=== PATIENT | female | born 1980 | race Caucasian/White ===

== ENCOUNTER 2016-10-22 13:22 | Outpatient (CLI) | payer MEDICAID | END 2016-10-22 13:23 | disposition home or self-care (01) | DX: R53.83 Other fatigue (principal); Z13.1 Encounter for screening for diabetes mellitus ==

== ENCOUNTER 2017-06-09 18:44 | Emergency (ER) | payer MEDICAID ==
--- NOTE | 2017-06-09 20:59 | ED Physician Documentation ---
PD HPI FEMALE - Stated complaint Stated Complaint: FEMALE - Chief complaint Chief Complaint: General - History obtained from History obtained from: Patient - History of Present Illness Timing - onset: How many days ago (3) Timing - duration: Days (3) Timing - details: Gradual onset, Still present Associated symptoms: Other (inguinal lump like infected hair follicle that has gotten bigger.). No: Fever, Vaginal discharge, Genital sore/lesion Contributing factors: No: Exposed to STD Similar symptoms before: Has not had sx before Recently seen: Not recently seen Review of Systems Constitutional: denies: Fever, Chills : denies: Dysuria, Frequency, Discharge PD PAST MEDICAL HISTORY - Past Medical History Cardiovascular: None Respiratory: None Neuro: None Endocrine/Autoimmune: None GI: GERD SHRIMP HEADER: Ovarian cysts : None HEENT: None Psych: Depression, Anxiety Musculoskeletal: None Derm: None - Past Surgical History Past Surgical History: Yes Ortho: Other /SHRIMP HEADER: Tubal ligation, Hysterectomy, Oophrectomy - Present Medications Home Medications: Ambulatory Orders Medication Instructions Recorded Confirmed Ascorbic Acid [Vitamin C] 1 tab PO DAILY 09/21/15 06/09/17 Cholecalciferol (Vitamin D3) 1 cap PO DAILY 09/21/15 06/09/17 [Vitamin D] HYDROcod/ACETAM 5/325 [[place] 5/325] 1 tab PO Q6H PRN #15 tablet 06/09/17 Sulfamethox/Trimeth 800/160 1 each PO BID #14 tablet 06/09/17 [Bactrim Ds 800/160] - Allergies Allergies/Adverse Reactions: Allergies Allergy/AdvReac Type Severity Reaction Status Date / Time morphine Allergy Hives Verified 06/09/17 19:11 - Social History Does the pt smoke?: No Smoking Status: Never smoker Does the pt drink ETOH?: No Does the pt have substance abuse?: No - Immunizations Immunizations are current?: No - POLST Patient has POLST: No PD ED PE NORMAL - Vitals Vital signs reviewed: Yes - General General: Alert and oriented X 3, No acute distress (but is in pain with palpation of the groin area. ), Well developed/nourished - Derm Derm: Normal color, Warm and dry, Other (left inguinal area with focal area of swelling, surrounding by redness and tenderness, some induration. ) Results - Vitals Vitals: Oxygen O2 Source Room air Procedures - Abscess I&D (location) left inguinal area Preparation: Confirmed with ultrasound (only small area of fluid), Lidocaine 1% , With epi Incision: Incised with scalpel, Purulent drainage, Irrigated Other: Pt tolerated well, Dressing applied, Antibiotic prescribed PD MEDICAL DECISION MAKING - ED course Complexity details: considered differential, d/w patient Departure - Departure Disposition: 01 Home, Self Care Clinical Impression: Inguinal abscess Condition: Stable Record reviewed to determine appropriate education?: Yes Instructions: ED Abscess IandD Follow-Up: Raysa Burch ARNP [Primary Care Provider] - Prescriptions: HYDROcod/ACETAM 5/325 [[place] 5/325] 1 tab PO Q6H PRN #15 tablet PRN Reason: Pain Sulfamethox/Trimeth 800/160 [Bactrim Ds 800/160] 1 each PO BID #14 tablet Comments: Warm moist towels to the abscess and infection area a few times a day. Cleanse it with soap and water. Allow the drainage spot to continue draining with some gauze over it. Tylenol or ibuprofen if needed for pains. Add hydrocodone if needed. Bactrim twice daily for a week for the infection of the tissue surrounding it. Recheck if not improved over the next several days or if not fully resolved over a week. Discharge Date/Time: 06/09/17 21:54
[2017-06-09] MEDS ORDERED: ACETAMINOPHEN 325 MG TABLET PO STA (21:12)
[2017-06-09] MEDS ORDERED: IBUPROFEN 600 MG TABLET PO STA (21:12)
[2017-06-09] MEDS ORDERED: SULFAMETH/TRIMETH DS 800/160 MG TABLET PO STA (21:12)
[2017-06-09] MEDS ORDERED: HYDROcod/ACET 5/325 Prepack 6 PO ONE ×3 (21:12→21:50)
[2017-06-09] MEDS ORDERED: SULFAMETH/TRIMETH DS 800/160 MG TABLET PO ONE (21:25)
[2017-06-09] MEDS ORDERED: ACETAMINOPHEN 325 MG TABLET PO ONE (21:25)
[2017-06-09 21:46] VITALS: BP 120/79
== END 2017-06-09 21:54 | disposition home or self-care (01) ==
LOC: ED 18:44
DX: L02.214 Cutaneous abscess of groin (principal)
CPT/HCPCS: 10060; 99283; A9270

== ENCOUNTER 2018-03-01 14:00 | Emergency (ER) | payer MEDICAID ==
[2018-03-01 14:29] VITALS: BP 139/74
--- NOTE | 2018-03-01 14:56 | ED Physician Documentation ---
PD HPI FEMALE - Stated complaint Stated Complaint: FEMALE - Chief complaint Chief Complaint: UTI - History obtained from History obtained from: Patient - History of Present Illness Timing - onset: Yesterday Timing - details: Abrupt onset, Still present (marked pain with urinating) Associated symptoms: Dysuria, Urinary frequency. No: Fever, Back pain, Vaginal bleeding, Vaginal discharge, Genital sore/lesion Contributing factors: No: Exposed to STD Similar symptoms before: Diagnosis (UTIs, but none recently) Recently seen: Not recently seen Review of Systems Constitutional: denies: Fever, Chills GI: denies: Nausea, Vomiting, Diarrhea : reports: Dysuria, Frequency, Hematuria. 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: Ovarian cysts : None HEENT: None Psych: Depression, Anxiety Musculoskeletal: None Derm: None - Past Surgical History Past Surgical History: Yes Ortho: Other /SUPERINTENDENT RADIO COMMUNICATIONS: Tubal ligation, Hysterectomy, Oophrectomy - Present Medications Home Medications: Ambulatory Orders Medication Instructions Recorded Confirmed Ascorbic Acid [Vitamin C] 1 tab PO DAILY 09/21/15 06/09/17 Cholecalciferol (Vitamin D3) 1 cap PO DAILY 09/21/15 06/09/17 [Vitamin D] HYDROcod/ACETAM 5/325 [[place] 5/325] 1 tab PO Q6H PRN #15 tablet 06/09/17 Sulfamethox/Trimeth 800/160 1 each PO BID #14 tablet 06/09/17 [Bactrim Ds 800/160] HYDROcod/ACETAM 5/325 [[place] 5/325] 1 tab PO Q6H PRN #8 tablet 03/01/18 Phenazopyridine [Pyridium] 200 mg PO TID PRN #15 tablet 03/01/18 Sulfamethox/Trimeth 800/160 1 each PO BID #14 tablet 03/01/18 [Bactrim Ds 800/160] - Allergies Allergies/Adverse Reactions: Allergies Allergy/AdvReac Type Severity Reaction Status Date / Time morphine Allergy Hives Verified 06/09/17 19:11 - Social History Does the pt smoke?: No Smoking Status: Never smoker Does the pt drink ETOH?: Yes Does the pt have substance abuse?: No - Immunizations Immunizations are current?: Yes - POLST Patient has POLST: No PD ED PE NORMAL - Vitals Vital signs reviewed: Yes - General General: Alert and oriented X 3, Well developed/nourished - Abdomen Abdomen: Soft, Non tender - Female Female : Deferred - Rectal Rectal: Deferred - Back Back: No CVA TTP - Derm Derm: Normal color, Warm and dry, No rash Results - Vitals Vitals: Vital Signs - 24 hr 03/01/18 14:26 Temperature 36.6 C Heart Rate 84 Respiratory 16 Rate Blood Pressure 139/74 H O2 Saturation 97 Oxygen O2 Source Room air - Labs Labs: Microbiology 03/01/18 14:55 Urine Culture - Preliminary Urine,Clean Catch Escherichia Coli Laboratory Tests 03/01/18 14:55 Urine Color YELLOW Urine Clarity HAZY Urine pH 6.5 Ur Specific [place] <=1.005 Urine Protein NEGATIVE Urine Glucose (UA) NEGATIVE Urine Ketones NEGATIVE Urine Occult Blood LARGE H Urine Nitrite NEGATIVE Urine Bilirubin NEGATIVE Urine Urobilinogen 0.2 (NORMAL) Ur Leukocyte Esterase MODERATE H Urine RBC 6-10 H Urine WBC >25 H Ur Squamous Epith Cells FEW Squamous Urine Bacteria Rare Ur Microscopic Review INDICATED Urine Culture Comments INDICATED PD MEDICAL DECISION MAKING - ED course Complexity details: reviewed results (UA seems positive enough to be c/w UTI), considered differential, d/w patient - Sepsis Event Vital Signs: Vital Signs - 24 hr 03/01/18 14:26 Temperature 36.6 C Heart Rate 84 Respiratory 16 Rate Blood Pressure 139/74 H O2 Saturation 97 Oxygen O2 Source Room air Departure - Departure Disposition: 01 Home, Self Care Clinical Impression: Urinary tract infection Qualifiers: Urinary tract infection type: acute cystitis Hematuria presence: with hematuria Qualified Code(s): N30.01 - Acute cystitis with hematuria Condition: Stable Record reviewed to determine appropriate education?: Yes Instructions: ED UTI Cystitis Female Follow-Up: Raysa Burch ARNP [Primary Care Provider] - Prescriptions: HYDROcod/ACETAM 5/325 [[place] 5/325] 1 tab PO Q6H PRN #8 tablet PRN Reason: Pain Phenazopyridine [Pyridium] 200 mg PO TID PRN #15 tablet PRN Reason: Pain Sulfamethox/Trimeth 800/160 [Bactrim Ds 800/160] 1 each PO BID #14 tablet Comments: Drink lots of fluids. Tylenol or ibuprofen if needed for pains. Pyridium for the discomfort of urination. Start Bactrim antibiotic twice daily for a week. Add pain medicine if needed. This should improve over the next couple of days as the infection starts clearing. The bleeding should decrease as well. Discharge Date/Time: 03/01/18 15:50
[2018-03-01 15:00] LABS: BILIRUBIN,URINE NEGATIVE (NEGATIVE); GLUCOSE, URINE (UA) NEGATIVE (NEGATIVE); KETONES,URINE (UA) NEGATIVE (NEGATIVE); LEUKOCYTE ESTERASE, URINE MODERATE (NEGATIVE); NITRITE,URINE NEGATIVE (NEGATIVE); OCCULT BLOOD,URINE LARGE (NEGATIVE); PH,URINE 6.5 PH (5.0-7.5); PROTEIN,URINE NEGATIVE (NEGATIVE); UROBILINOGEN,URINE 0.2 (NORMAL) E.U./dL (NORMAL)
[2018-03-01] MEDS ORDERED: traMADol 50 MG TABLET PO STA (15:03)
[2018-03-01] MEDS ORDERED: SULFAMETH/TRIMETH DS 800/160 MG TABLET PO STA (15:03)
[2018-03-01] MEDS ORDERED: PHENAZOPYRIDINE 100 MG TABLET PO STA (15:03)
[2018-03-01 15:06] LABS: CLARITY,URINE HAZY (CLEAR)
[2018-03-01 15:07] LABS: BACTERIA,URINE Rare /HPF (None Seen); SQUAMOUS EPITHELIAL CELL,UR FEW Squamous (<= Few)
== END 2018-03-01 15:50 | disposition home or self-care (01) ==
LOC: ED 14:00
DX: N30.01 Acute cystitis with hematuria (principal)
CPT/HCPCS: 81001; 87086; 87181; 99283; A9270; 81003

== ENCOUNTER 2018-03-28 15:08 | Outpatient (CLI) | payer MEDICAID ==
--- NOTE | 2018-03-29 00:52 | Ultrasound Report ---
Procedure Date: 03/28/2018 Accession Number: [id number] / [id number] Procedure: US - Duplex Ext Veins Left CPT Code: FULL RESULT: EXAM: LEFT LOWER EXTREMITY VENOUS ULTRASOUND EXAM DATE: 03/28/2018 03:38 PM. CLINICAL HISTORY: Pain in left knee. COMPARISON: None. TECHNIQUE: Real-time sonographic vascular imaging was performed by the assistant customer service manager through the lower extremity utilizing both color-flow and Doppler spectral analysis. Multiple physician representative static images were saved for review. FINDINGS: Common Femoral Vein (CFV): Normal. CFV-GSV Junction: Normal. Profunda Femoral Vein (PFV): Normal. Femoral Vein (FV) Prox: Normal. Femoral Vein (FV) Mid: Normal. Femoral Vein (FV) Dist: Normal. Popliteal Vein: Normal. Posterior Tibial Veins: Normal. Peroneal Veins: Normal. Contralateral Side CFV: Normal. Other: None. IMPRESSION: No evidence for deep venous thrombosis. RADIA
== END 2018-03-28 15:09 | disposition home or self-care (01) ==
LOC: DI 15:08
PROVIDERS: ATTEND Nurse Practitioner Family
DX: M25.562 Pain in left knee (principal)

== ENCOUNTER 2023-07-05 08:00 | Outpatient (CLI) | payer SELFPAY ==
--- NOTE | 2023-07-05 15:24 | XRAY Report ---
PROCEDURE: Cervical Spine 2 View INDICATIONS: NECK PAIN/FALL TECHNIQUE: 3 view(s) of the cervical spine were acquired. COMPARISON: None. FINDINGS: Bones: No fractures or dislocations to the C7 level. The lateral masses of C1 appear intact on the odontoid view. No suspicious bony lesions. Soft tissues: No prevertebral soft tissue swelling. IMPRESSION: No acute osseous finding. Reviewed by: Philip Gunter MD on 07/05/2023 2:23 PM [place] Approved by: Philip Gunter MD on 07/05/2023 2:23 PM [place] Station ID: [id number]
--- NOTE | 2023-07-05 15:26 | XRAY Report ---
PROCEDURE: Ribs w/PA Chest LT INDICATIONS: LEFT RIB PAIN/FALL TECHNIQUE: 4 views of the left ribs were acquired, along with a single view chest. COMPARISON: None. FINDINGS: Surgical changes and devices: None. Bones and chest wall: No fractures or dislocations. No suspicious bony lesions. Overlying soft tis sues appear unremarkable. Lungs and pleura: No pleural effusions or pneumothorax. Lungs appear clear. No displaced rib fractu re or pneumothorax Mediastinum: Mediastinal contours appear normal. Heart size is normal. IMPRESSION: No displaced rib fracture or pneumothorax. Reviewed by: Philip Gunter MD on 07/05/2023 2:24 PM [place] Approved by: Philip Gunter MD on 07/05/2023 2:24 PM [facility] Station ID: [id number]
--- NOTE | 2023-07-05 15:30 | XRAY Report ---
PROCEDURE: Scapula 2 View LT INDICATIONS: LEFT BACK WALL CONTUSION TECHNIQUE: 2 views of the scapula were acquired. COMPARISON: Rib series July 05, 2023 FINDINGS: Bones: No fractures or dislocations. No suspicious bony lesions. Visualized ribs appear intact. M ild glenohumeral osteoarthritic change. Soft tissues: Overlying soft tissues appear normal. IMPRESSION: No acute osseous finding. Mild glenohumeral osteoporosis. Reviewed by: Philip Gunter MD on 07/05/2023 2:29 PM [place] Approved by: Philip Gunter MD on 07/05/2023 2:29 PM [place] Station ID: [id number]
== END 2023-07-05 23:59 | disposition home or self-care (01) ==
LOC: DI.S 08:00
PROVIDERS: ATTEND Emergency Medicine
DX: S20.222A Contusion of left back wall of thorax, initial encounter (principal); S16.1XXA Strain of muscle, fascia and tendon at neck level, initial encounter; M81.0 Age-related osteoporosis without current pathological fracture